=== PATIENT | female | born 2000 | race Caucasian/White ===

== ENCOUNTER 2021-02-08 19:59 | Emergency (ER) | payer BC, OTHER ==
[~2021-02-08] VITALS: Ht 172.7 cm; Wt 59.0 kg
[2021-02-08] MEDS ORDERED: ACYC400 PO (23:09)
== END 2021-02-08 23:14 | disposition home or self-care (01) ==
LOC: ER 19:59
DX: N89.8 Other specified noninflammatory disorders of vagina (principal)
CPT/HCPCS: 99282; A9270